=== PATIENT | male | born 1935 | race Two or more races ===

== ENCOUNTER → 2019-10-26 | Outpatient (REF) | payer MEDICARE, OTHER | LOC: M LAB LCGH 11:15 | PROVIDERS: ATTEND Internal Medicine | DX: R04.2 Hemoptysis (principal) ==

== ENCOUNTER 2020-01-28 12:13 | Inpatient (IN) | payer MEDICARE, OTHER ==
[2020-01-28] VITALS (25 sets, daily range): BP systolic 83–131; BP diastolic 49–77
[~2020-01-28] VITALS: Ht 177.8 cm; Wt 102.1 kg
[2020-01-28] MEDS: PANTOPRAZOLE 40MG INJ (PROTONIX) (C9113) IV SCH (09:00)
[2020-01-28] MEDS ORDERED: NOREPINEPHRINE 4 MG/4 ML AMP As Ordered ONE (14:10)
[2020-01-28] MEDS ORDERED: PROPOFOL 1,000 MG/100 ML VIAL As Ordered ONE ×2 (14:13→19:45)
[2020-01-28] MEDS ORDERED: TORS20TA2 PO (14:57)
[2020-01-28] MEDS ORDERED: CEPH500C PO (14:57)
[2020-01-28] MEDS ORDERED: GLIM2TAB29 PO (14:57)
[2020-01-28] MEDS ORDERED: INDO50CA91 PO (14:57)
[2020-01-28] MEDS ORDERED: METO100T5 PO (14:57)
[2020-01-28] MEDS ORDERED: WARF-20 PO (14:57)
[2020-01-28] MEDS ORDERED: PRAV40TA2 PO (14:57)
[2020-01-28] MEDS ORDERED: COLC1TAB13 PO (14:57)
[2020-01-28] MEDS ORDERED: POTA20TA6 PO (14:57)
[2020-01-28] MEDS ORDERED: LISI10TA4 PO (14:57)
[2020-01-28] MEDS ORDERED: NOREPINEPHRINE BITARTRATE 8 MG in D5W 492 ML IV SCH (15:00)
[2020-01-28] MEDS ORDERED: [UNRECOGNIZED DRUG - CODE] IV (15:06)
[2020-01-28] MEDS ORDERED: [UNRECOGNIZED DRUG - CODE] IV (15:06)
[2020-01-28] MEDS ORDERED: PHYT10AM SC (15:06)
[2020-01-28] MEDS ORDERED: CEFT1INJ4 IV (15:06)
[2020-01-28 15:18] LABS: PROTHROMBIN TIME 59.6 SECONDS (11.8-14.0)
--- NOTE | 2020-01-28 15:19 | REP ---
Portable chest x-ray: Single view. History: Intubated central line. No comparison chest x-ray. Findings: A multi lead pacemaker is seen in the right heart via the left side. The patient is rotated to the left. Endotracheal tube is seen in good position at the level of proximal clavicles. A nasogastric tube is inserted and appears to have left upper quadrant of the abdomen although there is overlap with monitoring electrodes. The patient is status post what appears to be aortic valve replacement. Median sternotomy wires and mediastinal clips are noted. There is hazy opacity blunting the right lateral pleural angle. The pulmonary arterial tree is somewhat cephalized and congested in the right lung. The left lung is largely opacified with volume loss suggesting atelectasis and/or mucous plugging. Electronically Signed by Moody Price MD 01/28/2020 03:11 P
[2020-01-28 15:22] LABS: INR 6.77
[2020-01-28 15:29] LABS: ALBUMIN 2.6 GM/DL (3.2-5.2); BILIRUBIN,TOTAL 0.3 MG/DL (0.2-1.0); CALCIUM LEVEL 7.5 MG/DL (8.8-10.2); CK-MB VALUE MASS 6.1 NG/ML (<3.6); CREATININE FOR GFR 3.05 MG/DL (0.70-1.30); GLOMERULAR FILTRATION RATE 20.9 (>35); MB/CK RELATIVE INDEX 6.35 (< OR =4); PHOSPHORUS LEVEL 5.2 MG/DL (2.5-4.9); POTASSIUM SERUM 5.5 MEQ/L (3.5-5.1); TOTAL PROTEIN 6.2 GM/DL (6.4-8.2); TROPONIN I 0.07 NG/ML (< 0.10)
[2020-01-28] MEDS ORDERED: VANCOMYCIN HCL 1,000 MG, VIAL MATE ADAPTER 1 EACH in D5W 250 ML IV ONE (16:00)
[2020-01-28 16:13] LABS: BASO # 0.1 10^3/uL (0.0-0.2); BASO % 0.5 % (0.0-1.0); EOS # 0.1 10^3/uL (0.0-0.5); EOS % 1.2 % (0.0-3.0); HEMATOCRIT 34.3 % (42.0-52.0); HEMOGLOBIN 10.6 g/dl (13.5-17.5); LYMPH # 0.6 10^3/uL (1.5-5.0); LYMPH % 5.7 % (24.0-44.0); MEAN CORPUSCULAR HEMOGLOBIN 30.4 pg (27.0-33.0); MEAN CORPUSCULAR HGB CONC 30.9 g/dl (32.0-36.5); MEAN CORPUSCULAR VOLUME 98.3 fl (80.0-96.0); MONO % 10.5 % (0.0-5.0); PLATELET COUNT, AUTOMATED 304 10^3/uL (150-450); RED BLOOD COUNT 3.49 10^6/uL (4.30-6.10); WHITE BLOOD COUNT 9.9 10^3/uL (4.0-10.0)
[2020-01-28 16:15] LABS: ABG BASE EXCESS -12.8 (-2.0-2.0); ABG HCO3 12.6 MEQ/L (22.0-26.0); ABG O2 SATURATION 99.5 % (95.0-99.0); ABG PARTIAL PRESSURE CO2 27.4 mmHg (35.0-45.0); ABG PARTIAL PRESSURE O2 155.7 mmHg (75.0-100.0); ABG STANDARD HCO3 14.3 MEQ/L (22.0-26.0); ABG TOTAL CO2 13.5 MEQ/L (23.0-31.0); ABG pH (ARTERIAL) 7.281 UNITS (7.350-7.450)
[2020-01-28] MEDS ORDERED: LIDOCAINE 2% 5ML JELLY UROJET TOP ONE (16:15)
[2020-01-28 16:36] LABS: ABG BASE EXCESS -10.9 (-2.0-2.0); ABG HCO3 14.7 MEQ/L (22.0-26.0); ABG O2 SATURATION 98.8 % (95.0-99.0); ABG PARTIAL PRESSURE CO2 31.8 mmHg (35.0-45.0); ABG PARTIAL PRESSURE O2 135.6 mmHg (75.0-100.0); ABG STANDARD HCO3 15.9 MEQ/L (22.0-26.0); ABG TOTAL CO2 15.7 MEQ/L (23.0-31.0); ABG pH (ARTERIAL) 7.283 UNITS (7.350-7.450)
[2020-01-28] MEDS: AZITHROMYCIN INJ 500 MG, VIAL MATE ADAPTER 1 EACH in D5W 250 ML IV SCH (17:10)
--- NOTE | 2020-01-28 17:14 | SMCUROLCON ---
Urology Consultation General Date of Consultation 01/28/20 Reason For Consultation This patient is seen for Acute On Chronic Renal Failure,Septic Shock. History of Present Illness This is an 84 y/o M w/ a PMH significant for A fib, CKD, HTN, DM2, and HL, transferred in from an OSH for likely septic shock. Per report the multiple attempts had been made to place a catheter at the OSH prior to him being [place] sferred. Attempts were made her as well w/o success. The patient has not voided. There is no history of previous urologic procedures per report. The patient is intubated and cannot provide any history. Past Medical History Medical History see HPI Surgical Hstory CABG cataract surgery cholecystectomy Medications Current Medications Current Medications Medications (Trade) Dose Ordered Sig/Noel Route PRN Reason Start Time Stop Time Status Last Admin Dose Admin Azithromycin 500 mg/IV Miscellaneous Supplies 1 each/ Dextrose 255 ml @ 255 mls/hr Q24H IV 01/28/20 16:30 Ceftriaxone Sodium 1 gm/ Dextrose 50 ml @ 100 mls/hr Q24H IV 01/28/20 17:00 Chlorhexidine Gluconate (Peridex Oral Rinse) SWAB/BRUSH ORAL CAVITY BID MT 01/28/20 21:00 Home Med (Med Rec Complete!) ASDIRECTED XX 01/28/20 15:15 01/28/20 15:38 DC Norepinephrine Bitartrate 8 mg/ Dextrose 500 ml @ 37.5 mls/hr [id number] IV 01/28/20 15:00 01/29/20 02:59 Norepinephrine Bitartrate 8 mg/ Dextrose 500 ml @ 37.5 mls/hr [id number] IV 01/29/20 03:00 Pantoprazole Sodium (Protonix) 40 mg DAILY IV 01/28/20 09:00 Vancomycin HCl 1000 mg/IV Miscellaneous Supplies 1 each/ Dextrose 270 ml @ 270 mls/hr Q1H IV 01/28/20 18:00 01/28/20 19:59 Allergies Allergies: Coded Allergies: No Known Allergies (Unverified , 01/28/20) Review of Systems General: Reports: ROS Unobtainable Physical Examination General Exam: No Acute Distress Abdomen Exam: Soft Male Exam uncircumcised phallus w/ tight phimotic ring - foreskin cannot be retracted Vital Signs/I&O Vital Signs Date Time Temp Pulse Resp B/P (MAP) Pulse Ox O2 Delivery O2 Flow Rate FiO2 01/28/20 15:15 78 108/62 (80) 98 111/57 01/28/20 14:30 98.1 Ventilator 40 01/28/20 14:25 25 Laboratory Data 24H Labs Laboratory Tests 2 01/28/20 14:18: Anion Gap 8, Glomerular Filtration Rate 20.9L, Calcium Level 7.5L, Phosphorus Level 5.2H, Magnesium Level 2.0, Total Bilirubin 0.3, Aspartate Amino Transf (AST/SGOT) 46H, Alanine Aminotransferase (ALT/SGPT) 58, Alkaline Phosphatase 121H, Lactate Dehydrogenase 208, Total Creatine Kinase 96, Creatine Kinase MB 6.1H, Creatine Kinase MB Relative Index 6.35H, Troponin I 0.07, Total Protein 6.2L, Albumin 2.6L, Albumin/Globulin Ratio 0.72L, Triglycerides Level 98, Cholesterol Level 78 01/28/20 14:36: Prothrombin Time 59.6H, Prothromb Time International Ratio 6.77*H, Lactic Acid Level 1.1 01/28/20 15:47: Immature Granulocyte % (Auto) 1.1, Neutrophils (%) (Auto) 81.0H, Lymphocytes (%) (Auto) 5.7L, Monocytes (%) (Auto) 10.5H, Eosinophils (%) (Auto) 1.2, Basophils (%) (Auto) 0.5, Neutrophils # (Auto) 8.0, Lymphocytes # (Auto) 0.6L, Monocytes # (Auto) 1.0H, Eosinophils # (Auto) 0.1, Basophils # (Auto) 0.1, Nucleated Red Blood Cells % (auto) 0.3H 01/28/20 16:13: Blood Gas Bicarbonate Standard 15.9L, Arterial Blood pH 7.283L, Arterial Blood Partial Pressure CO2 31.8L, Arterial Blood Partial Pressure O2 135.6H, Arterial Blood Total CO2 15.7L, Arterial Blood HCO3 14.7L, Arterial Blood Base Excess - 10.9L, Arterial Blood Oxygen Saturation 98.8, Arterial Blood Gas Puncture Site UNKNOWN CBC/BMP Laboratory Tests 01/28/20 14:18 01/28/20 15:47 Microbiology Microbiology 01/28/20 Blood Culture, Received Pending 01/28/20 Blood Culture, Received Pending Assessment This is an 84 y/o M w/ likely septic shock and difficult catheter placement. He was bladder scanned for over 600cc. After the patient was prepped w/ betadine, urojet was injected into the the tight phimotic ring. A Kaylynn clamp was then used to gently spread the phimotic ring just enough to allow a catheter to be placed. The ring was still to tight to retract the foreskin. A 16Fr catheter was then inserted and advanced into the bladder w/o resistance. Cloudy yellow urine then drained. The balloon was filled w/ 10cc of sterile water and the catheter was connected to gravity drainage. Plan - keep catheter to gravity drainage - should the patient improve he should be discharged with the catheter in place - he should then follow up in the urology clinic as he might benefit from a circumcision on an elective basis TAMIKO LEVY MD Jan 28, 2020 17:14
[2020-01-28] MEDS: cefTRIAXone SOD 1 GM in D5W MINI-BAG PLUS 50 ML IV SCH (18:16)
[2020-01-28 18:22] LABS: APPEARANCE, URINE CLOUDY (CLEAR); BACTERIA, URINE AUTO 1+ (NEGATIVE); BILIRUBIN, URINE AUTO NEGATIVE (NEGATIVE); BLOOD, URINE BLOOD 2+ (NEGATIVE); COLOR, URINE YELLOW (YELLOW); GLUCOSE, URINE (UA) AUTO NEGATIVE (NEGATIVE); KETONE, URINE AUTO TRACE mg/dL (NEGATIVE); LEUKOCYTE ESTERASE, URINE AUTO NEGATIVE (NEGATIVE); NITRITE, URINE AUTO NEGATIVE (NEGATIVE); PROTEIN, URINE AUTO NEGATIVE (NEGATIVE); RBC, URINE AUTO 15 /HPF (0-3); SPECIFIC GRAVITY URINE AUTO 1.014 (1.002-1.035); SQUAMOUS EPITHELIAL CELL UR AU 0 /HPF (0-6); UROBILINOGEN, URINE AUTO 0.2 mg/dL (0.0-2.0); WBC, URINE AUTO 6 /HPF (0-3)
--- NOTE | 2020-01-28 19:02 | ECHO ---
DATE OF PROCEDURE: 01/28/2020 REFERRING PHYSICIAN: Dr. Te Aviles INDICATION: Heart failure, unspecified. HEIGHT: 70 inches WEIGHT: 105 kg 2D MEASUREMENTS: Left atrium: 4.4 cm Ventricular septum: 1.26 cm Posterior wall: 1.18 cm Left ventricle diastole: 5.6 cm Inferior vena cava: 2.3 cm with marked reduction of respiratory variation. DOPPLER MEASUREMENTS: Mild aortic regurgitation. No aortic stenosis. Aortic valve velocity: 183 cm/s LVOT velocity: 62.4 cm/s LVOT VTI: 12.1 cm Mild mitral regurgitation. Moderate tricuspid regurgitation. Estimated right ventricle systolic pressure: At least 77 mmHg assuming a right pressure of at least 20 mmHg. MITRAL ANNULAR TISSUE DOPPLER: E prime septal: 5.0 cm/s E prime lateral: 6.5 cm/s DESCRIPTION: Rhythm was sinus. Suspect biventricular pacing. No pericardial effusion. This was a moderately technically difficult echocardiogram. No pericardial effusion. CONCLUSIONS: 1. Akinesis of the basal and mid inferior and inferolateral left ventricular (LV) segments and akinesis of the apical cap segment. Paradoxical septal motion. Normal wall motion and wall thickening elsewhere. Moderate reduction overall LV systolic function. Left ventricular ejection fraction (LVEF) 40% by visual estimate. Mild eccentric left ventricular hypertrophy. Mild left ventricle dilatation. 2. Moderate aortic valve sclerosis of a 3-cusp aortic valve. No aortic stenosis. Mild aortic regurgitation. 3. Mild mitral annular calcification. Mild mitral regurgitation. 4. Mild left atrial dilatation. 5. Suggestive of severe elevation of estimated right ventricle systolic pressure (at least 77 mmHg). Inferior vena cava plethora. Suggestive of elevated central venous pressure of at least 20 mmHg. 6. Presence of endocardial cardiac rhythm management leads including a right ventricle implantable cardioverter defibrillator (ICD), a coronary sinus LV lead, and a right ventricle pacing lead.
--- NOTE | 2020-01-28 20:54 | PHACANCOPD ---
PHARMACY VANCOMYCIN DOSING Pt Demographics Demographics Patient Age:84 , Weight: , Gender: male Adjusted Body Weight Date: 01/28/20, Adjusted Body Weight: Kg Events Past 24 Hours Events Past 24 Hours: NO: Dialysis, Diuretic Therapy, Change in CrCl, Fever, Elevation in WBC, Pending Diagnostics, Pending Procedures, Other Vancomycin Vancomycin indication: Pneumonia Vancomycin Target Ranges: 15-20 mcg/ml Vancomycin Load Y/N: Yes Load Dose Date Time Vancomycin Load Dose: 2000mg Date: 01/28/20 Time:1800 Vancomycin Dose Date: 01/28/20. Current Vancomycin Dose: [ 1500mg q24h @18 ] Intermittent Dosing?: No Labs Labs Vital Signs Label Value Date Time Patient Temperature 99.0 degrees F 01/28/202031 Temperature Source Temporal 01/28/202031 Patient Temperature 98.0 degrees F 01/28/201812 Temperature Source Tympanic 01/28/201812 Respiratory Rate 27 bpm 01/28/201812 Pulse 77 01/28/201812 Pulse 80 01/28/202031 Blood Pressure Assessment 83/51 01/28/201812 Blood Pressure Assessment 104/62 01/28/202016 Blood Pressure Assessment 115/77 01/28/202031 Item Value Date Time White Blood Count 9.9 10^3/uL 01/28/20 1547 Creatinine 3.05 MG/DL H 01/28/20 1418 Glomerular Filtration Rate 20.9 L 01/28/20 1418 Micro Microbiology 01/28/20 Blood Culture, Received Pending 01/28/20 Blood Culture, Received Pending Creatinine Clearance Date:01/28/20. Creatinine Clearance: [ 18.6 mL/min ]. Assessment and Plan Maintaining Current Dose?: Yes Reason for dose change: No Dose Change Pharmacist Note Pharmacist Note Date: 01/28/20. Pharmacist note: Patient is an 84-year-old male who was transferred to [facility], with the admitting diagnoses of acute on chronic renal failure and septic shock. He has no previous vancomycin therapy at [facility]. He was placed on broad-spectrum antibiotic therapy for possible pneumonia and septic shock consisting of azithromycin, ceftriaxone, and vancomycin. A 2 gram loading dose of vancomycin was scheduled for 1800, with a subsequent maintenance dose of 1500mg every 24 hours. A vancomycin trough level was scheduled for 01/30/20 @1700, with a goal trough level of 15-20mcg/dL. A MRSA PCR and basic metabolic profile were ordered. We will continue to monitor and make adjustments as needed. [facility] Jan 28, 2020 20:54
[2020-01-28] MEDS ORDERED: SODIUM BICARBONATE 150 MEQ in D5W 1,000 ML IV SCH (21:00)
[2020-01-28] MEDS ORDERED: VASOPRESSIN INJ 20 UNITS in NS 499 ML IV SCH (21:00)
[2020-01-28] MEDS: CHLORHEXIDINE GLUCONATE 0.12 % 15ML UDC (PERIDEX ORAL RINSE) MT SCH (21:03)
[2020-01-28] MEDS: VANCOMYCIN HCL 1,000 MG, VIAL MATE ADAPTER 1 EACH in D5W 250 ML IV SCH ×2 (21:06→21:13)
--- NOTE | 2020-01-28 21:24 | HPE ---
DATE OF ADMISSION: 01/28/2020 HISTORY OF THE PRESENT ILLNESS: History is obtained from the chart and from collateral information as the patient is intubated and unable to provide history. Mr. Nieto is an 84-year-old male with a past medical history of coronary artery disease with myocardial infarction (GA) and coronary artery bypass graft (CABG), hypertension, hyperlipidemia, diabetes, atrial fibrillation - on anticoagulation, history of congestive heart failure (CHF) with automatic implantable cardioverter defibrillator (AICD) and pacemaker, sleep apnea, aortic valve replacement, history of gout who had presented to an outside hospital emergency department (ED) with complaints of insomnia and generalized weakness. The patient had a procedure done by podiatry last Tuesday where he had a gouty tophi removed from his right big toe. Postprocedure he was started on cephalexin, colchicine and indomethacin, which he has been taking since his presentation to [facility]. The patient noted difficulty sleeping and some generalized weakness, and his had felt that his speech was not as clear as it was usually, but he otherwise did not have any new complaints. On further questioning, the patient's family reports he does have a history of pneumonia when he was hospitalized previously in September with pneumonia with hemoptysis. He was treated with antibiotics and his hemoptysis resolved but that he was told that he has issues with mucus or fluid in his lungs, but given his chronic medical conditions, he could not have any procedures. His family states that he has had a chronic cough since then, occasionally productive of mucus, but they have not noticed any worsening cough or any fevers or chills. He has not complained of any chest pain recently as well and has not had any nausea or vomiting. No reported diarrhea. The patient is incontinent at baseline, as per the family but denies any previous history of any other urologic procedures. The patient was initially seen at [facility]. He was found to have acute on chronic renal failure with hyperkalemia as well as a significant metabolic acidosis. The patient was found to have a pH of 7.13, a pCO2 of 41.6, and a pO2 of 88.8. His chemistry was also notable for hyperkalemia of 5.8 in addition to his acute on chronic renal failure with a BUN of 111 and a creatinine of 3.6. The patient had a normal lactate initially and mild leukocytosis with a WBC of 10.7. He was also noted to have a supratherapeutic INR with an INR greater than 9.8, which was the maximum that their lab was able to report. The patient was treated with insulin and glucose for treatment of his hyperkalemia. He was also given Keflex for antibiotics, and the patient was also given vitamin K 10 mg and 1 unit of fresh frozen plasma for his supratherapeutic INR. The patient was then noted to have worsening hypotension with systolic blood pressures in the 70s and 80s. He was given almost 2 liters of normal saline bolus and had only slight improvement in his blood pressure. The patient was then started on Levophed peripherally with improvement in his blood pressure. The patient was then intubated. He was given rapid sequence medications for intubation as well as 3 ampules of bicarb prior to intubation. Post intubation the patient was started on a Versed drip for sedation and continued with the Levophed on transport. At the previous hospital, there were attempts made to insert a Naranjo, which were unsuccessful. He was not reported to have any urination at the other hospital. PAST MEDICAL AND SURGICAL HISTORY: Gout. Coronary artery disease with GA, status post CABG. CHF with biventricular (bi-V) implantable cardioverter defibrillator (ICD). Atrial fibrillation - on anticoagulation. Chronic kidney disease. Diabetes. Hypertension. Hyperlipidemia. Mitral valve regurgitation. Hiatal hernia. Cholecystectomy. History of left hip replacement. History of left total knee replacement. Aortic valve replacement, bovine valve. Sleep apnea. History of varicella in the past. SOCIAL HISTORY: Former smoker with 24 pack years. Denies any alcohol use. FAMILY HISTORY: Reported of dementia and a heart valve problem. HOME MEDICATIONS: - lisinopril - glimepiride - metoprolol - pravastatin - torsemide 20 mg twice a day - Coumadin 6 mg by mouth daily and additional 4 mg by mouth as directed - potassium chloride - cephalexin 500 mg by mouth three times a day - colchicine 0.6 mg by mouth twice a day - indomethacin 50 mg by mouth three times a day ALLERGIES: No known drug allergies. REVIEW OF SYSTEMS: Unable to be obtained as the patient is intubated and sedated. PHYSICAL EXAM: Temperature 98.1, pulse of 91, respirations 25, blood pressure is 94/50, oxygen saturation (O2 sat) is 100% on the vent at 40% FiO2. General: Patient is intubated and sedated. He is responsive to painful stimuli and is moving his lower extremities spontaneously. He is responsive to painful stimuli but is not following any commands. HEENT: Normocephalic, atraumatic. Pupils are small but reactive to light bilaterally. Mucous membranes are moist. He does have a lesion on his lip with report of possible biting. Neck is supple. Trachea is midline. There is no palpable cervical adenopathy. Jugular venous distention (JVD) is elevated. Cardiac: Irregularly irregular. Normal S1, S2 with a faint murmur. Pulmonary: There are severely diminished breath sounds on the left side with some coarse ventilator breath sounds on the right with diminished breath sounds at the right base. Abdomen is obese, soft, nontender, nondistended. No guarding noted. Extremities: There is no significant lower extremity edema bilaterally. LABORATORY: WBC is 9.9, hemoglobin is 10.6, platelets are 304. Chemistry: Sodium is 142, potassium is 5.5, chloride is 115, bicarbonate is 19, BUN is 100, creatinine is 3.05, glucose is 100, calcium is 7.5, phosphorus is 5.2, AST 46, ALT 58, alkaline phosphatase is 121, troponin times one is negative. Albumin is 2.6, lactic acid is 1.1, INR is 6.77. UA showed trace ketones, positive blood, negative nitrites and with some bacteria with negative leukocyte esterase. ABG: pH 7.281, pCO2 of 27.4, pO2 of 155.7. Chest x-ray on arrival showed endotracheal (ET) tube in good position. An orogastric (OG) tube was coursing below the diaphragm it appeared, although there is overlap with electrodes where the tip is. There are median sternotomy wires and clips and what appears to be an aortic valve replacement. There is a multilead pacemaker seen in the right heart via the left side. There is a small right pleural effusion as well as some pulmonary vascular congestion on the right. The left lung shows opacification with some volume loss with mediastinal shift to the left slightly, suggesting atelectasis as well as mucus plugging. The left main bronchus appears to have a sharp cut off suggesting a mucus plug. Outside CT abdomen and pelvis reportedly showed moderate left-sided pleural effusion with atelectasis and consolidation in the left lung. There is a small right pleural effusion and right basilar atelectasis. There is much severe cardiomegaly with trace pericardial effusion. There is a small upper abdominal ascites and moderate diffuse fatty infiltration of the liver. There are multiple low-density cystic lesions in the right kidney. There is a lobulated appearance of the left kidney and no hydronephrosis noted bilaterally. There is some moderate distension of the urinary bladder and some moderate prostatomegaly with dystrophic prostate calcifications. There is some diverticular disease but no evidence of bowel obstruction or inflammation and no free air. ASSESSMENT AND PLAN: Mr. Nieto is an 84-year-old male with a past medical history of coronary artery disease, status post CABG, CHF, status post of biventricular AICD, atrial fibrillation - on anticoagulation, history of aortic valve replacement, diabetes, hypertension, hyperlipidemia, chronic kidney disease and gout, obstructive sleep apnea (NINA), who presented at an outside hospital initially with complaints of insomnia and generalized weakness. The patient had a recent podiatry procedure on his right big toe last week and was started on Keflex as well as indomethacin and colchicine for his gouty toe. In the outside hospital, he was noted to have acute on chronic renal failure with a significant metabolic acidosis with additional respiratory acidosis. He was also noted to be hyperkalemic, as well as having supratherapeutic INR. The patient did also become more hypotensive despite IV fluid boluses, and he was lethargic. The patient was started on peripheral Levophed, and he was intubated and placed on mechanical ventilation and transferred to our intensive care unit (ICU) for further evaluation. NEUROLOGIC: The patient is intubated and sedated currently. He has a history of altered mental status, likely secondary to metabolic encephalopathy with his uremia. He did have a supratherapeutic INR initially and did not have any imaging of his brain done at the outside hospital. - Will get a head CT to evaluate for any acute intracranial pathology. - Will continue with propofol for sedation with Versed as needed for agitation to titrate for a Gregory of 2-3. CARDIOVASCULAR: The patient has extensive cardiac history including CAD, CHF, status post biventricular AICD, atrial fibrillation, was on anticoagulation with Coumadin and a previous history of a bovine aortic valve replacement. He presented with shock, possibly secondary to sepsis given his x-ray findings with left lung atelectasis and mucus plugging. He also had a recent the procedure on his foot and may have a potential source of infection there, although he was on outpatient antibiotics with Keflex. Given his cardiac history, cardiogenic shock is also possible. - The patient had a right internal jugular (IJ) triple lumen placed here for administration of vasopressors and he was started on Levophed. Vasopressin was added as well to maintain a mean arterial pressure (MAP) above 65. - Will continue to trend cardiac enzymes. His initial cardiac enzyme was negative and his initial EKG did not show any evidence of acute ST elevations or depressions. - Will get an echocardiogram for evaluation of his shock. At bedside, he appeared to have evidence of RV dilation with a dilated inferior vena cava (IVC) suggestive of increased central venous pressures. Given his hypotension and renal failure, fluid removal may be difficult, but patient may respond better given evidence of pulmonary hypertension and right heart failure with some reduction in his preload. Will followup final results of echo. - Will hold his Coumadin and will give an additional 2 units of FFP to correct his supratherapeutic INR. He was already given vitamin K of 10 mg. Will hold off on aspirin for now as he does have evidence of uremia and likely has some platelet dysfunction with it - Will add a BNP. PULMONARY: Patient with severe metabolic acidosis with inappropriate respiratory acidosis. He was also in shock and so was intubated and started on mechanical ventilation. His x-ray here shows evidence of pulmonary vascular congestion with bilateral pleural effusions, left likely greater than the right as well as with some left lung atelectasis and mucus plugging. The patient has no fever but did have mild leukocytosis initially at the outside hospital. Patient possibly with pneumonia given his imaging findings. - Will start antibiotics for possible pneumonia with ceftriaxone and azithromycin and will also start vancomycin pending results of a methicillin-resistant Staphylococcus aureus (MRSA) screen. - Will check a sputum culture and will also followup results of blood cultures. - will also check wound culture from his right big toe. - I will continue the patient on mechanical ventilation with volume control with settings of 420/27/40 and 5. The patient's respiratory rate was increased as his ABG here continued to show evidence of an acidosis, likely primarily metabolic, with a component of inappropriate respiratory compensation. - Will continue daily ABGs and chest x-rays while intubated and continue with vent bundle care with head of bed elevation and chlorhexidine mouthwash. - Given his left lung atelectasis, will place the patient left side up and will place a directional suction catheter and attempt to suction mucus from his left lung via the ET tube. If the patient continues to have atelectasis in the left lung, then he may require bedside bronchoscopy for mucus clearance. RENAL: Patient with acute on chronic renal failure with hyperkalemia and metabolic acidosis. He does not have a significant anion gap, and his lactic acid is normal, so he may have a component of non-anion gap acidosis. - Will consult renal and appreciate their recommendations. Will discuss with them about gentle bicarbonate infusion as he does have significant volume overload noted on his bedside echo and with significantly elevated central venous pressure (CVP). Will continue to monitor his electrolytes. Will continue to monitor electrolytes and correct as needed. - The patient had evidence of phimosis on examination, which likely contributed to difficulty with Naranjo catheter placement. He did have 650 mL of urine on his bladder scan and is likely having urinary retention which may be contributing to his renal failure as well. The patient did also get indomethacin and colchicine, which may have also contributed to potential acute tubular necrosis (ATN). - Appreciate urology consult and recommendations. He did have a Naranjo catheter placed by urology which will remain in place unless directed by urology. - Will continue to monitor his urine output via the Naranjo. The patient does not have any urgent indication for dialysis at this time, but will continue to monitor his renal function and acidosis. - Patient has a history of diabetes. His glucose has not been elevated. Will order fingerstick glucose checks. GASTROINTESTINAL (GI): Will place an OG tube and keep patient nothing by mouth (n.p.o.) with low wall intermittent suction. Would likely be able to start him on tube feeds tomorrow depending on his vasopressor requirements. - Patient's outside CT abdomen and pelvis had shown evidence of fatty liver and small amount of ascites. Will continue to monitor his liver function test. - Continue GI prophylaxis while intubated. Heparin for deep vein thrombosis (DVT) prophylaxis. CODE STATUS: The patient had a previous Medical Orders for Life-Sustaining Treatment (MOLST) which stated he was do not resuscitate/do not intubate (DNR/DNI); however, after discussion with the patient and his family, particularly with his healthcare proxy who he does have a documented healthcare proxy form, the decision was made for a trial intubation and to continue him as a DNR. TOTAL CRITICAL CARE TIME SPENT: Not including any procedures, approximately 1 hour and 45 minutes [email or web address]
--- NOTE | 2020-01-28 21:31 | RO ---
DATE OF PROCEDURE: 01/28/2020 INDICATION: Vasopressor administration. PREPROCEDURE DIAGNOSIS: Shock. POSTPROCEDURE DIAGNOSIS: Shock. PROCEDURE: Central line insertion. SURGEON: Gayle Wlesh MD CONSENT: Consent was implied due to the emergent nature of the procedure. DESCRIPTION OF PROCEDURE: A central line insertion practice form was completed by independent observer. A time-out was performed. Full sterile technique was maintained throughout procedure, including surgical cap, mask with protective eyewear, full gown and sterile gloves. The patient was placed in Trendelenburg position, and the right neck region was prepped using chlorhexidine scrub and draped in sterile fashion using a fenestrated drape and a sterile probe cover employed. The right internal jugular vein was identified using ultrasound. Anesthesia was achieved over the vein using 1% lidocaine. Using real-time out of plane guidance, introducer needle was inserted into the internal jugular vein under direct ultrasound visualization. Venous blood was drawn. The syringe was removed and a guidewire was advanced into the introducer needle. The introducer needle was removed over the guidewire. A small incision was made at the skin surface with a scalpel and the dilator was exchanged over the guidewire. After appropriate dilation was obtained, the dilator was exchanged over the wire for a triple lumen central venous catheter. The wire was removed and the catheter was sutured in place at 18 cm. A sterile chlorhexidine impregnated dressing was placed over the catheter insertion site. The patient tolerated the procedure without hemodynamic compromise. At the time of procedure completion, all ports aspirated and flushed properly. Postprocedure chest x-ray showed the triple lumen in position with no pneumothorax. Estimated blood loss was less than 2 mL. MTDD
--- NOTE | 2020-01-28 21:42 | ECGEPIP ---
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
--- NOTE | 2020-01-28 21:45 | RO ---
DATE OF PROCEDURE: 01/28/2020 INDICATION: Hemodynamic monitoring. PREPROCEDURE DIAGNOSIS: Shock. POSTPROCEDURE DIAGNOSIS: Shock. PROCEDURE: Femoral arterial line insertion. SURGEON: Gayle Welsh MD MATERIAL HANDLING SUPERVISOR: ANESTHESIA: CONSENT: Consent was implied due to the emergent nature of the procedure. DESCRIPTION OF PROCEDURE: Time-out was performed and full sterile technique was maintained throughout the procedure including surgical cap, mask, protective eyewear, sterile gown and sterile gloves. The left inguinal region was prepped using chlorhexidine scrub and draped in a sterile fashion using a fenestrated drape. A sterile probe cover was employed. The left femoral artery was identified using ultrasound and anesthesia was achieved using 1% lidocaine. Using real-time out of plane guidance, the introducer needle was inserted into the left femoral artery under direct ultrasound visualization. Arterial blood was withdrawn. The syringe was removed and a guidewire was advanced through the needle into the femoral artery. The needle was exchanged over the wire. An arterial catheter was then exchanged over the wire and the wire was removed and the catheter was secured to the skin using sutures. The patient tolerated the procedure without any hemodynamic compromise. At time of procedure completion, the catheter was connected to the record filing clerk and calibrated. Appropriate waveform and blood pressure tracing was observed. Estimated blood loss was less than 2 mL.
--- NOTE | 2020-01-28 22:10 | CR ---
DATE OF CONSULTATION: 01/28/2020 REQUESTING PHYSICIAN: Dr. Gayle Welsh CONSULTING PHYSICIAN: Dr. Reva Yu REASON FOR CONSULTATION: Management of acute renal failure and metabolic acidosis. NOTE: History was obtained from the patient's chart and from medical team. The patient is unable to provide any reliable history because he is intubated. HISTORY OF PRESENT ILLNESS: Alex Nieto is an 84-year-old male with past medical history of baseline chronic kidney disease, hypertension, diabetes mellitus type 2, hyperlipidemia. The patient was transferred to [facility] for higher level of care. He initially presented to an outside emergency room with progressive shortness of breath, hypotension. The patient was intubated in the emergency room before being transferred to our center. He was started on a Levophed infusion over there. On arrival and initial labs evaluation, the patient was found to be in acute renal failure with a BUN of 100, creatinine of 3.05. He has a normal anion gap metabolic acidosis with a pH of 7.28. On arrival, he was already given sodium bicarbonate 2 ampules over there. The patient is hyperkalemic with a potassium of 5.5. He has vent dependent respiratory failure and left lung collapse. Nephrology service was called for further help in the management of this patient with acute renal failure. Furthermore, the patient was found to be in urinary retention when he arrived in the intensive care unit (ICU). Urology help was sought because of the patient's phimosis and inability to pass the Naranjo catheter, and urology placed the Naranjo catheter and more than 600 mL of urine came out. PAST MEDICAL HISTORY: Past medical see of chronic kidney disease stage III, baseline creatinine is not known. History of atrial fibrillation, hypertension, diabetes mellitus type 2, hyperlipidemia, coronary artery disease. PAST SURGICAL HISTORY: Status post coronary artery bypass grafting, status post cholecystectomy, cataract surgery, and history of pacemaker placement. ALLERGIES: No known drug allergies. FAMILY HISTORY: Unknown family history. SOCIAL HISTORY: I was unable to get any social history from the patient. REVIEW OF SYSTEMS: The patient is unable to provide any review of systems because he is intubated. PHYSICAL EXAMINATION: General: The patient is intubated, sedated, laying in the bed. Vital signs: Temperature is 98.6 degrees Fahrenheit, blood pressure 104/62, pulse is 85, respiratory rate of 27, saturating 96% on the vent with 35% FiO2. Head and neck exam: Patient has an endotracheal tube and an orogastric tube. Neck is supple, and he has a right IJ triple lumen catheter. Cardiovascular: S1, S2, regular rate. Trace edema of the bilateral lower extremities. Respiratory: There are no breath sounds on the left side. Breath sounds are audible on the right side only. Abdomen: Soft, positive bowel sounds, obese, no organomegaly was noted. Genitourinary: Patient has an indwelling Naranjo catheter. The a urinary bag has been emptied now. There is a very small amount of urine in the Naranjo drainage tube. Musculoskeletal: No clubbing or cyanosis. Trace edema of the bilateral lower extremities. 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 He moves on painful stimuli. LAB REVIEW: CBC showed a WBC of 9.9, hemoglobin is 10.6, platelets are 304, INR showed it was 6.7. Urinalysis showed it was cloudy, no protein, 2+ blood. ABG showed pH of 7.28, pCO2 of 31, pO2 of 135, bicarbonate is 14.7, oxygen saturation (O2 sat) is 98.8%. BMP showed sodium 142, potassium 5.5, chloride 115, bicarbonate 19, BUN 100, creatinine is 3, lactic acid 1.1, calcium is 7.5, phosphorus is 5.2, AST 46, ALT 58, troponin 0.07, Pro-BNP is 17,678, albumin is 2.6. Microbiology: Blood cultures and urine cultures are pending. IMAGING STUDIES: A chest x-ray was done which showed median sternotomy wires and mediastinal clips are noted. Hazy opacity blunting the right lateral pleural angle. Pulmonary arterial tree is somewhat cephalized and congested in the right lung. Left lung is opacified with volume loss suggesting atelectasis or mucous plugging. CURRENT INPATIENT MEDICATIONS: The patient is currently on azithromycin 500 mg IV daily, ceftriaxone 1 gram IV daily. He is on Levophed at 7 mcg at this time. I have started the patient on sodium bicarbonate drip 115 mEq at 60 mL an hour, vancomycin 500 mg IV every 24 hours. ECHOCARDIOGRAM: An echocardiogram was done today. It showed left ventricular (LV) ejection fraction was around 40%. There was akinesis of the basal and mid inferior and inferolateral left ventricle and akinesis of the apical cap segment with paradoxical septal wall motion, severe elevation of the estimated right ventricle systolic pressure, which was around 77 mmHg. Inferior vena cava plethora and presence of endocardial leads ASSESSMENT: An 84-year-old male with acute renal failure superimposed on chronic kidney disease along with normal anion gap metabolic acidosis, hyperkalemia, decompensated systolic congestive heart failure and vent dependent respiratory failure. PLAN: 1. Acute renal failure. Multiple etiologies including use of colchicine, indomethacin, and lisinopril at home along with use of diuretics. All of the nephrotoxic medications are on hold. The patient has been started on bicarb containing fluids. He was also in urinary retention when he arrived. Naranjo catheter was replaced by urology. Continue to monitor intake and output. No urgent need of hemodialysis at this time. I will continue to daily monitor the renal function for any need to start the patient on renal replacement therapy. 2. Vent dependent respiratory failure. The patient has complete whiteout of the left lung, most likely it is collapsed secondary to mucous plugging. He is currently empirically getting antibiotics, he is intubated. Pulmonary team is planning to do the bronchoscopy tomorrow morning. 3. Normal anion gap metabolic acidosis. It is secondary to acute renal failure. The patient has been started on D5W with sodium bicarbonate 150 mEq it will run at 60 mL an hour. Weight is being kept low because of history of congestive heart failure as well. 4. Chronic gout secondary to chronic kidney disease. The patient was getting indomethacin and colchicine and these medications have been held because of acute renal failure at this time. 5. Chronic systolic congestive heart failure. The patient's metoprolol, lisinopril and diuretics are on hold because of acute renal failure. 6. Hyperkalemia. It is secondary to use of angiotensin-converting enzyme (CALIXTO) inhibitors and potassium at home. Potassium level is expected to improve with improvement in the renal function. 7. Anemia in chronic kidney disease. Hemoglobin level is 10.6 which is optimal at this time. 8. Supratherapeutic INR. INR is 6.7. The patient was already given fresh frozen plasma and vitamin K. There is no active bleeding at this time. 9. Shock. The patient's cultures are pending. He is empirically being covered with IV antibiotics. He is requiring Levophed at 7 mcg. The rest of the management is as per pulmonary critical care team. Thank you for involving me in the care of this patient. I shall be happy to follow the patient along with you tomorrow morning. Total critical care time spent in the management of this patient today evening in the ICU was 70 minutes; that does not include any procedures.
[2020-01-29] VITALS (26 sets, daily range): BP systolic 82–134; BP diastolic 34–91
[2020-01-29 00:17] LABS: CALCIUM LEVEL 7.6 MG/DL (8.8-10.2); CREATININE FOR GFR 2.87 MG/DL (0.70-1.30); GLOMERULAR FILTRATION RATE 22.4 (>35); POTASSIUM SERUM 4.6 MEQ/L (3.5-5.1)
--- NOTE | 2020-01-29 00:20 | REPVR ---
PROCEDURE INFORMATION: Exam: CT Head Without Contrast Exam date and time: 01/28/2020 2:25 PM Age: 84 years old Clinical indication: Coma or unconsciousness; Additional info: Obtunded on presentation TECHNIQUE: Imaging protocol: Computed tomography of the head without contrast. Radiation optimization: All CT scans at this facility use at least one of these dose optimization techniques: automated exposure control; mA and/or kV adjustment per patient size (includes targeted exams where dose is matched to clinical indication); or iterative reconstruction. COMPARISON: No relevant prior studies available. FINDINGS: Brain: No intracranial mass, mass effect or midline shift. No acute intracranial hemorrhage. No CT evidence of acute cortical infarct. Ventricles: Ventricles, cisterns, and sulci are normal in size for age. Bones/joints: No calvarial fracture or destructive process. Sinuses: Mild ethmoid and sphenoid sinus mucosal thickening is present. Mastoid air cells: Mastoid air cells are normally aerated. Orbits: Imaged orbits are unremarkable. Soft tissues: No focal extracranial soft tissue swelling. IMPRESSION: No acute or concerning focal intracranial abnormality. Electronically signed by: Zachary Manuel On 01/29/2020 00:20:46 AM
[2020-01-29] MEDS ORDERED: PROPOFOL 1,000 MG/100 ML VIAL As Ordered ONE (04:22)
[2020-01-29] MEDS ORDERED: propofoL 1,000 MG in IV 1 EA IV SCH (04:30)
[2020-01-29] MEDS: NOREPINEPHRINE BITARTRATE 8 MG in D5W 492 ML IV SCH ×2 (04:31→11:20)
[2020-01-29 05:01] LABS: BASO % 0.4 % (0.0-1.0); EOS # 0.3 10^3/uL (0.0-0.5); EOS % 3.4 % (0.0-3.0); HEMATOCRIT 31.5 % (42.0-52.0); HEMOGLOBIN 10.3 g/dl (13.5-17.5); LYMPH # 0.7 10^3/uL (1.5-5.0); LYMPH % 8.9 % (24.0-44.0); MEAN CORPUSCULAR HEMOGLOBIN 31.1 pg (27.0-33.0); MEAN CORPUSCULAR HGB CONC 32.7 g/dl (32.0-36.5); MEAN CORPUSCULAR VOLUME 95.2 fl (80.0-96.0); MONO % 13.8 % (0.0-5.0); NEUTROPHILS # 5.3 10^3/uL (1.5-8.5); NEUTROPHILS % 72.8 % (36.0-66.0); PLATELET COUNT, AUTOMATED 222 10^3/uL (150-450); RED BLOOD COUNT 3.31 10^6/uL (4.30-6.10); WHITE BLOOD COUNT 7.3 10^3/uL (4.0-10.0)
[2020-01-29 05:14] LABS: INR 3.43; PROTHROMBIN TIME 34.6 SECONDS (11.8-14.0)
[2020-01-29 05:52] LABS: C REACTIVE PROTEIN QUANTITATIV 2.74 MG/DL (0.00-0.30); CALCIUM LEVEL 7.5 MG/DL (8.8-10.2); CK-MB VALUE MASS 3.9 NG/ML (<3.6); CREATININE FOR GFR 2.49 MG/DL (0.70-1.30); GLOMERULAR FILTRATION RATE 26.4 (>35); MB/CK RELATIVE INDEX 6.09 (< OR =4); POTASSIUM SERUM 4.1 MEQ/L (3.5-5.1); THYROID STIMULATING HORMONE 1.02 uIU/ML (0.358-3.740); TROPONIN I 0.18 NG/ML (< 0.10)
[2020-01-29 06:11] LABS: ABG BASE EXCESS -7.4 (-2.0-2.0); ABG HCO3 17.1 MEQ/L (22.0-26.0); ABG PARTIAL PRESSURE CO2 31.4 mmHg (35.0-45.0); ABG PARTIAL PRESSURE O2 133.8 mmHg (75.0-100.0); ABG STANDARD HCO3 18.4 MEQ/L (22.0-26.0); ABG TOTAL CO2 18.1 MEQ/L (23.0-31.0); ABG pH (ARTERIAL) 7.354 UNITS (7.350-7.450)
--- NOTE | 2020-01-29 08:37 | REP ---
Portable chest x-ray: Single view. History: Intubation. Comparison study January 28, 2020. Findings: Endotracheal tube is seen in good position at the level of the proximal clavicles. An NG tube is noted. This appears to terminate in the distal esophagus. Pacemaker leads are noted in the right heart as before. The patient is status post prior sternotomy and what appears to be aortic valve replacement. Cardiomegaly is again observed. There is increased density left base obscuring the left diaphragm and descending aortic border consistent with consolidation and/or atelectasis in the lower lobe with without left pleural effusion. There is however improved aeration in the left lung compared with yesterday's radiograph. Hazy opacity in the right base suggests a small right effusion. A right internal jugular central venous line is again noted in place. Impression: Improved aeration left lung. NG tube appears to terminate in the distal esophagus. Electronically Signed by Moody Price MD 01/29/2020 08:28 A
[2020-01-29] MEDS: PANTOPRAZOLE 40MG INJ (PROTONIX) (C9113) IV SCH (08:39)
[2020-01-29] MEDS: CHLORHEXIDINE GLUCONATE 0.12 % 15ML UDC (PERIDEX ORAL RINSE) MT SCH ×2 (08:39→20:58)
[2020-01-29 09:22] LABS: CK-MB VALUE MASS 3.7 NG/ML (<3.6); MB/CK RELATIVE INDEX 7.12 (< OR =4); TROPONIN I 0.2 NG/ML (< 0.10)
[2020-01-29] MEDS: propofoL 1,000 MG in IV 1 EA IV SCH ×3 (09:31→19:40)
[2020-01-29] MEDS: FUROSEMIDE 40 MG/4 ML VIAL (J1940) IV SCH ×2 (10:15→17:18)
[2020-01-29] MEDS: BICITRA 30ML SOLN UDC NG SCH ×2 (11:20→20:58)
[2020-01-29] MEDS ORDERED: GLUCOSE 4 GM CHEW TABLET PO PRN (13:30)
[2020-01-29] MEDS ORDERED: GLUCAGON FOR INJ 1 MG VIAL (J1610) SC PRN (13:30)
[2020-01-29] MEDS ORDERED: DEXTROSE 50% 50 ML SYRINGE IV PRN (13:30)
--- NOTE | 2020-01-29 14:00 | CCN ---
DATE OF SERVICE: 01/29/2020 The patient was seen and examined this morning during bedside rounds. Overnight, the patient has remained on Levophed for vasopressor support. However, he has been able to be titrated down to three mcg per minute and this morning was also off of Levophed briefly although his maps did trend down slightly. He has remained intubated and is sedated but is moving all four extremities during the sedation vacation earlier this morning. He was not following commands appropriately, however. The patient did have a Naranjo catheter placed at bedside by urology, and he has had some significant urine output overnight. He was started on a bicarbonate drip by nephrology, as well, yesterday evening. PHYSICAL EXAMINATION: Temperature 97.5, pulse 72, respirations 26, blood pressure 117/51, oxygen (O2) saturation 98% on 35% FIO2. Input 1.5 liters, out 810 mL. General: The patient is intubated and is sedated. He is responsive to painful stimuli and moving all four extremities spontaneously. HEENT: Normocephalic, atraumatic. Pupils are reactive to light bilaterally. Mucous membranes are moist. Neck is supple. Trachea is midline. There is no palpable cervical adenopathy. There is positive jugular venous distention (JVD). Cardiac is irregularly irregular. Normal S1, S2 with a faint murmur. Pulmonary: There are improved breath sounds on the left upper lobe with decreased breath sounds at the left base and some diminished breath sounds in the right base, as well. Abdomen is obese, soft, nontender, nondistended. There is no guarding noted. Extremities: There is no significant lower extremity edema bilaterally. LABORATORIES: WBC 7.3, hemoglobin of 10.3, platelets of 222. Chemistry: Sodium is 143, potassium is 4.1, chloride is 116, bicarbonate is 20, BUN is 91, creatinine is 2.49, glucose is 132, calcium 7.5. INR was 3.43. Troponin trending up to 0.18, BNP was elevated at 17,678. Arterial blood gas (ABG): pH of 7.354, pCO2 of 31.4, pO2 of 133.8. IMAGING: Chest x-ray shows pulmonary vascular congestion and a left lower lobe infiltrate/atelectasis. There is also likely left pleural effusion, as well as a small right pleural effusion. There is improvement in the aeration in the left upper lung collapse compared to previous x-ray. His endotracheal (ET) tube is in good position. He has a right IJ triple lumen in good position. His nasogastric (NG) tube is in position, as well, although the distal tip may be in the lower esophagus versus stomach. CT head: No evidence of focal infarct or hemorrhage. ASSESSMENT AND PLAN: Mr. Nieto is an 84-year-old male with a history of coronary artery disease (CAD), status post coronary artery bypass graft (CABG), congestive heart failure (CHF), history of biventricular automatic implantable cardioverter-defibrillator (AICD), atrial fibrillation on anticoagulation, history of aortic valve replacement, diabetes, hypertension, hyperlipidemia, chronic kidney disease (CKD), obstructive sleep apnea (NINA), who presented to an outside hospital with complaints of insomnia and generalized weakness. The patient also had a recent podiatry procedure on his right big toe last week and was started on indomethacin and colchicine for his gout, as well as Keflex for antibiotics. At the outside hospital, the patient was noted to have acute on chronic renal failure with a significant metabolic acidosis and additional respiratory acidosis. He was also noted to have supratherapeutic international normalized ratio (INR) on admission and was hyperkalemic. The patient was also hypotensive and required Levophed peripherally for blood pressure support. He was also intubated and started on mechanical ventilation prior to his transfer here to our intensive care unit (ICU). Neurologic: The patient is intubated and sedated. He did have a head CT done last night given his history of supratherapeutic INR and altered mental status. His head CT did not show any acute intracranial pathology, including infarct or hemorrhage. His altered mental status was likely secondary to metabolic encephalopathy from his uremia, as well as possible sepsis. - Will continue with daily sedation vacation and weaning trials as tolerated. Cardiovascular: The patient has an extensive cardiac history, including coronary artery disease, CHF, status post biventricular AICD, atrial fibrillation, and a bovine aortic valve replacement. He presented with shock, possibly secondary to sepsis from pneumonia versus infection with his recent podiatry procedure. The patient may also have a possible component of cardiogenic shock, given his significant cardiac history. He did have some positive troponin, which was likely secondary demand. - Continue with vasopressor support to maintain a mean arterial pressure (MAP) above 65. The patient had a right IJ triple lumen placed and was started on Levophed. He has been able to be titrated down overnight and has required significantly less doses of Levophed, only around three mcg per minute currently. - Will continue to trend his cardiac enzymes. His initial electrocardiogram (EKG) did not show any acute ST elevations, and so these are likely secondary demand ischemia. - The patient's echocardiogram did show a reduced ejection fraction (EF), approximately 40%, with evidence of some LV wall motion abnormality. He was also noted to have some mild mitral regurgitation, as well as evidence of severe increase in RV systolic pressure and a severely dilated inferior vena cava (IVC) suggestive of elevated central venous pressure. - The patient's chest x-ray this morning does show evidence of increased pulmonary vascular congestion, as well as likely bilateral pleural effusions. His central venous pressure (CVP) continues to be significantly elevated and will discuss with nephrology about starting Lasix potentially for diuresis. - The patient had supratherapeutic INR in the setting of Coumadin. He was given 1 unit of fresh frozen plasma (FFP) yesterday and had already received vitamin K 10 mg at the outside hospital. His INR has trended down to 3.43. Will continue to hold his Coumadin; and once his INR is less than 3, will start him on a heparin drip for anticoagulation. - Will continue to hold aspirin, given his history of uremia with concern for uremic platelets. Will likely restart his aspirin tomorrow. Pulmonary: The patient is intubated and on mechanical ventilation. His initial chest x-ray did show significant atelectasis and mucus plugging of the left lung. This morning, his chest x-ray shows improved aeration in the left upper lobe, but he does have atelectasis versus consolidation in the left lower lobe, as well as some evidence of pulmonary vascular congestion and pleural effusions bilaterally. - Will continue the patient on mechanical ventilation with volume control settings of 420 and will decrease his respiratory rate to 23 and continue with FIO2 reduced to 35 and a PEEP of 5. - Will continue with daily ABGs and chest x-rays while intubated. Continue with vent bundle care with head of bed elevation and chlorhexidine mouthwash. - Will continue the patient with antibiotics for possible pneumonia with ceftriaxone and azithromycin and will discontinue his vancomycin as his methicillin-resistant Staphylococcus aureus (MRSA) screen was negative. - Will followup results of his sputum and blood cultures, as well as the wound culture that he had done from his right great toe, as he did have some pus drainage from it. Renal: The patient with acute on chronic renal failure with non anion gap acidosis. The patient renal failure likely in the setting of some medications that he received as an outpatient with nonsteroidal antiinflammatory drugs (NSAIDs) and colchicine. He likely also has a component of postobstructive kidney injury due to the phimosis noted on his urologic examination. - Appreciate renal recommendations and consult. He was started on bicarbonate infusion yesterday evening, and his renal function has improved. He also had a Naranjo catheter placed and had significant drainage of urine upon placement by urology. - The patient does have evidence of pulmonary edema and fluid overload clinically, as well as on his echocardiogram and with his elevated CVP. He does have RV dilation and significant pulmonary hypertension, and so suspect with the diuresis he may actually have improvement in his cardiac output and potentially in his renal function. - Will continue with Lasix as per renal, as well as with Bicitra. - Will continue to monitor his renal function and acidosis, as well as electrolytes. - Appreciate urology consult and the placement of the Naranjo catheter. He will need to be discharged with the Naranjo catheter in place with followup with urology as an outpatient for possible elective circumcision. - Will continue with fingerstick glucose checks with sliding scale coverage as needed, given his history of diabetes. Gastrointestinal (GI): The patient has an orogastric (OG) tube in place, and he is kept nothing by mouth currently. Will start him on tube feeds and monitor for residuals. - Continue with GI prophylaxis. Deep venous thrombosis (DVT), heparin. Will start heparin drip once INR is less than 2. CODE STATUS: The patient is a DO NOT RESUSCITATE (DNR) with a trial intubation. TOTAL CRITICAL CARE TIME SPENT: Not including procedures, approximately 40 minutes. MTDD
[2020-01-29 15:11] LABS: CK-MB VALUE MASS 4.4 NG/ML (<3.6); TROPONIN I 0.15 NG/ML (< 0.10)
[2020-01-29] MEDS: AZITHROMYCIN INJ 500 MG, VIAL MATE ADAPTER 1 EACH in D5W 250 ML IV SCH (15:38)
[2020-01-29] MEDS: cefTRIAXone SOD 1 GM in D5W MINI-BAG PLUS 50 ML IV SCH (16:12)
[2020-01-29] MEDS: HumaLOG INSULIN (NovoLOG) PER UNIT SC SCH (17:43)
--- NOTE | 2020-01-29 17:46 | IPN ---
DATE: 01/29/2020 SUBJECTIVE: The patient was seen and examined at the bedside today morning in the intensive care unit (ICU). His was also present at the bedside. The patient continues to be intubated. He was not on any pressors in the morning when I saw him. Blood pressures were soft with systolic in low 90s. His urine output is improving. He is making more than 60 mL of urine an hour. Renal function is also showing improvement. creatinine is trending down. Hyperkalemia is improving. His chest x-ray done today morning is showing more aeration today as compared with yesterday when there was complete whiteout on the left side on x-ray and his acidosis is also getting better with the IV bicarbonate fluid that he is getting. However, the patient clinically is volume overloaded and his central venous pressure (CVP) done today morning was more than 16. OBJECTIVE: VITAL SIGNS: Temperature is 97.6 degrees Fahrenheit, blood pressure 110/58, pulse is 76, respiratory rate of 27, saturating 95% on the ventilator with 35% FIO2. INTAKE AND OUTPUT: Urine output recorded is 810 mL yesterday, 675 mL so far today since overnight. Weight in the bed scale is 105.8 kg. PHYSICAL EXAMINATION: GENERAL: The patient is intubated, sedated, laying in bed. Eyes are closed. Pupils are equally round and reactive to light. He has an endotracheal tube and orogastric tube. Neck is supple. She has a right internal jugular (IJ) triple-lumen catheter. CARDIOVASCULAR: S1, S2, regular rate, 1+ edema of the bilateral lower extremities. RESPIRATORY: Chest is clear to auscultation on the right side. There are decreased breath sounds on the left base. I can hear the breath sounds on the left apex. ABDOMEN: Soft, positive bowel sounds, nontender. No organomegaly. GENITOURINARY: He has an indwelling Naranjo catheter. Urine in the bag is clear. MUSCULOSKELETAL: No clubbing or cyanosis. Pulses are 2+. He has a dressing on the right big toe. CENTRAL NERVOUS SYSTEM (STONE PAVER): The patient is intubated and sedated. Otherwise, he moves extremities on painful stimuli. LABORATORY REVIEW: CBC showed a WBC of 7.3, hemoglobin 10.3, platelets are 222. INR today is 3.4. ABG done today morning showed pH of 7.35, pCO2 of 31, pO2 of 133, bicarbonate is 17, O2 sat is 99%. BMP done today morning showed sodium 143, potassium 4.1, chloride 116, bicarbonate 20, BUN 91, creatinine is 2.4, calcium is 7.5, troponin is 0.18. MICROBIOLOGY: Wound cultures, urine culture and blood cultures are all pending. IMAGING STUDIES: A chest x-ray done today morning showed improving aeration in the left lung, NG tube in the distal esophagus, cardiomegaly and vascular congestion. CURRENT INPATIENT MEDICATIONS: The patient's medications were all reviewed by me. The patient was getting sodium bicarbonate-containing IV fluid. I have stopped the IV fluid. He continues to be on Levophed protocol. However, in the morning when I saw him, it was weaned off. He continues to be on IV antibiotic. I have started the patient on Bicitra 30 mL via the nasogastric (NG) tube twice a day and I have also started him on Lasix 40 mg IV every eight hours. There is no other change in the medications today as compared with yesterday. ASSESSMENT AND PLAN: 1. Acute renal failure superimposed on chronic kidney disease. The patient is showing signs of renal improvement. He is nonoliguric at this time. Creatinine and potassium is trending down. No urgent need of dialysis. IV fluids are being stopped because of decompensated heart failure and he is off the pressors. I am going to start the patient on gentle diuresis now. 2. Acute decompensated systolic congestive heart failure. The patient's central venous pressure (CVP) is still high at 16. He is being weaned off the pressors. I have started him on Lasix 40 mg IV every eight hours. IV bicarbonate-containing fluids are being stopped. 3. Normal anion gap metabolic acidosis. It is secondary to acute renal failure. As mentioned above, bicarbonate-containing fluids are being stopped. The patient has been started on Bicitra 30 mL via the nasogastric (NG) tube twice a day. 4. Ventilator-dependent respiratory failure. The patient is getting better aeration of the left lung. Ventilator management is as per primary team. Volume status will be optimized with the diuretics. 5. Chronic gout secondary to chronic kidney disease. 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 The toe was cultured. No gout treatment at this time because the patient is in acute renal failure. He was taking colchicine and indomethacin as outpatient. 6. Hyperkalemia. Potassium level is improving with improvement in the renal function and metabolic acidosis. 7. Shock. The patient's blood pressures are getting better. Levophed is being weaned off. Cultures are pending. He continues to be on empiric broad-spectrum antibiotics. Total critical care time spent in the management of this patient today morning in the intensive care unit (ICU) is 45 minutes excluding all the procedures.
[2020-01-29] MEDS ORDERED: VANCOMYCIN HCL 1,000 MG, VIAL MATE ADAPTER 1 EACH in D5W 250 ML IV SCH (18:00)
[2020-01-29] MEDS ORDERED: VANCOMYCIN HCL 500 MG in D5W MINI-BAG PLUS 100 ML IV SCH (19:00)
[2020-01-30] VITALS (14 sets, daily range): BP systolic 83–142; BP diastolic 43–91; O2SAT 98
[2020-01-30] MEDS ORDERED: fentaNYL 100 MCG/2 ML INJECTION (J3010) IV PRN (00:15)
[2020-01-30] MEDS: HumaLOG INSULIN (NovoLOG) PER UNIT SC SCH ×3 (00:31→12:00)
[2020-01-30] MEDS: propofoL 1,000 MG in IV 1 EA IV SCH ×2 (00:32→07:48)
[2020-01-30 01:24] LABS: CALCIUM LEVEL 7.8 MG/DL (8.8-10.2); GLOMERULAR FILTRATION RATE 34.1 (>35); MAGNESIUM LEVEL 1.8 MG/DL (1.8-2.4); POTASSIUM SERUM 3.6 MEQ/L (3.5-5.1)
[2020-01-30] MEDS ORDERED: MAG SULF 1GM/100ML (MAG RUN) 1 GM in IV 1 EA IV ONE (01:30)
[2020-01-30] MEDS: FUROSEMIDE 40 MG/4 ML VIAL (J1940) IV SCH ×2 (01:40→10:36)
[2020-01-30] MEDS: KCL 20MEQ IN 100ML SWI (KRUN) 20 MEQ in IV 1 EA IV SCH ×4 (02:54→04:04)
[2020-01-30 05:37] LABS: ABG BASE EXCESS -3.7 (-2.0-2.0); ABG HCO3 20.4 MEQ/L (22.0-26.0); ABG O2 SATURATION 97.5 % (95.0-99.0); ABG PARTIAL PRESSURE O2 97.2 mmHg (75.0-100.0); ABG STANDARD HCO3 21.4 MEQ/L (22.0-26.0); ABG TOTAL CO2 21.5 MEQ/L (23.0-31.0); ABG pH (ARTERIAL) 7.397 UNITS (7.350-7.450)
[2020-01-30 05:38] LABS: BASO % 0.4 % (0.0-1.0); EOS # 0.4 10^3/uL (0.0-0.5); EOS % 4.2 % (0.0-3.0); HEMATOCRIT 33.5 % (42.0-52.0); LYMPH # 0.6 10^3/uL (1.5-5.0); LYMPH % 7.5 % (24.0-44.0); MEAN CORPUSCULAR HGB CONC 32.8 g/dl (32.0-36.5); MEAN CORPUSCULAR VOLUME 94.4 fl (80.0-96.0); MONO % 11.9 % (0.0-5.0); NEUTROPHILS # 6.3 10^3/uL (1.5-8.5); NEUTROPHILS % 75.3 % (36.0-66.0); PLATELET COUNT, AUTOMATED 256 10^3/uL (150-450); RED BLOOD COUNT 3.55 10^6/uL (4.30-6.10); WHITE BLOOD COUNT 8.4 10^3/uL (4.0-10.0)
[2020-01-30 05:49] LABS: INR 2.81; PROTHROMBIN TIME 29.4 SECONDS (11.8-14.0)
[2020-01-30 05:57] LABS: CALCIUM LEVEL 8.1 MG/DL (8.8-10.2); CREATININE FOR GFR 1.9 MG/DL (0.70-1.30); GLOMERULAR FILTRATION RATE 36.1 (>35); POTASSIUM SERUM 4.2 MEQ/L (3.5-5.1)
[2020-01-30] MEDS ORDERED: AMIODARONE HCL 150 MG in IV 1 EA IV STA (09:18)
--- NOTE | 2020-01-30 09:29 | REP ---
Portable chest x-ray: Single view. History: Intubated patient. Comparison study: January 29, 2020. Findings: The patient is rotated somewhat to the left. Endotracheal tube is seen in good position. A multi lead pacemaker is noted. A right IJ line is seen in place. NG tube enters left upper quadrant. Hazy opacity throughout the left base persists obscuring left hemidiaphragm and left lateral pleural angle consistent with pleural fluid and/or atelectasis versus infiltrate left base. There is some pleural fluid suspected on the right as well. Findings unchanged. Electronically Signed by Moody Price MD 01/30/2020 09:21 A
[2020-01-30] MEDS ORDERED: dexmedeTOMidine 200 MCG in IV 1 EA IV SCH (09:30)
[2020-01-30] MEDS: BICITRA 30ML SOLN UDC NG SCH (10:04)
[2020-01-30] MEDS: CHLORHEXIDINE GLUCONATE 0.12 % 15ML UDC (PERIDEX ORAL RINSE) MT SCH (10:04)
[2020-01-30] MEDS: PANTOPRAZOLE 40MG INJ (PROTONIX) (C9113) IV SCH (10:04)
[2020-01-30] MEDS: NOREPINEPHRINE BITARTRATE 8 MG in D5W 492 ML IV SCH (10:35)
[2020-01-30] MEDS ORDERED: METOPROLOL 5 MG/5 ML VIAL IV STA (11:55)
[2020-01-30] MEDS ORDERED: MORPHINE 2 MG/ML 1ML VIAL (J2270) IV PRN (13:00)
[2020-01-30] MEDS ORDERED: HYOSCYAMINE SULFATE 0.125 MG SUBL TABLET PO PRN (13:00)
--- NOTE | 2020-01-30 14:06 | CCN ---
DATE: 01/30/2020 CRITICAL CARE UPDATE NOTE FOR PATIENT MARIAA SHAH: The patient was placed on a weaning trial earlier this morning, which he tolerated well and was successfully extubated to bilevel positive airway pressure (BiPAP). The patient was on Precedex drip during the weaning trial as he was agitated with discontinue the propofol. The Precedex was discontinued once the patient was extubated and he was off of sedation. Off of sedation the patient continued to be agitated and confused and was not following commands appropriately. After some discussion with the patient's family, including his healthcare proxy, as well as his , the patient's family had stated that the patient would be a DO NOT INTUBATE and a DO NOT RESUSCITATE DNR at this point as he initially had not wanted any intubation and they had felt a short trial period of intubation was appropriate. After further discussion the patient's healthcare proxy and also discussed that the patient would not have wanted any of these aggressive measures. He has a previous history of lung nodules, which were being followed initially by Dr. Donovan, and he had also been seen by Dr. España. There was some concern that these nodules were increasing in size and he was recommended for biopsy for evaluation for malignancy, which he declined with the understanding that these may potentially be malignant lesions. As per his , the patient previously stated he had a very fulfilling life and she states that he would not have wanted any of these aggressive measures that he is currently undergoing in the intensive care unit (ICU). Therefore, the family with his healthcare proxy have decided to make the patient COMFORT MEASURES ONLY at this time and all interventions besides those needed for comfort will be discontinued. The patient has an updated Medical Orders for Life Sustaining Treatment (MOLST) in the chart signed by his healthcare proxy. MTDD
--- NOTE | 2020-01-30 14:26 | CCN ---
DATE: 01/30/2020 Patient was seen and examined this morning during bedside rounds. Overnight the patient has continued to require Levophed at a low-dose around 3-4 mcg per minute. He was given IV Lasix yesterday for diuresis and did have significant proven in his urine output and has been significantly net negative. The patient has been having issues overnight with tachycardia with atrial fibrillation in rapid ventricular response. He also has been having what appears to be runs of nonsustained ventricular tachycardia (NSVT) as well. The patient's electrolytes were repleted yesterday. PHYSICAL EXAM: Temperature 98.6, pulse 123, respirations 23, blood pressure 109/57, oxygen saturation 98% on the vent at 35% FiO2. Ins 1.8 liters, out 4.2 liters, net negative 2.4 liters. GENERAL: Patient is intubated and sedated. With sedation vacation he is moving all four extremities and is agitated, but is not following commands or tracking. HEENT: Normocephalic, atraumatic. Pupils reactive to light bilaterally. Mucous membranes are moist. NECK: Supple. Trachea is midline. There is no palpable cervical adenopathy. CARDIAC: Irregularly irregular tachycardic, normal S1-S2 with faint murmur. PULMONARY: There is improved breath sounds noted bilaterally with some diminished breath sounds at the bases. ABDOMEN: Obese, soft, nontender, nondistended. There is no guarding noted. EXTREMITIES: There is no significant lower extremity edema bilaterally. LABORATORY DATA WBC 8.4, hemoglobin 11.0, platelets 256. Chemistries: Sodium is 144, potassium 4.2, chloride 113, bicarb 25, BUN 71, creatinine 1.90, glucose 149, INR 2.81. ABG pH 7.397, pCO2 of 34.0, pO2 of 97.2. IMAGING: Chest x-ray shows the ET tube in good position. The right IJ triple lumen is in place. The NG tube is entering the left quadrant. There is some slight improvement in the opacity in the left base with evidence of left pleural effusion as well as a likely small right pleural effusion. ASSESSMENT/PLAN: Mr. 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 The patient had a recent podiatry procedure for gout and was started on indomethacin, colchicine as well as Keflex. He was found at the outside hospital to have acute on chronic renal failure with a significant metabolic acidosis with a respiratory acidosis as well as noted to have lethargy and altered mental status likely secondary to metabolic encephalopathy. The patient was also hypotensive as well and he was started on peripheral Levophed there and intubated and placed on mechanical ventilation prior to his transfer to our intensive care unit for further management. Neuro: The patient is intubated and sedated. He did have a head CT done on his admission here due to his supratherapeutic INR and altered mental status, which did not show any acute intracranial pathology. His altered mental status was likely secondary to metabolic encephalopathy from his uremia as well as with hypotension. - The patient is on propofol for sedation with Versed and fentanyl p.r.n. for pain control and for agitation. He had a sedation vacation today for a weaning trial on the ventilator. He did become agitated and so was started on Apresodex drip to help wean off the propofol for his weaning trial. Cardiovascular: The patient has an extensive cardiac history including CAD, CHF, status post biventricular AICD, atrial fibrillation and bovine aortic valve replacement. He presented with shock possibly secondary to sepsis from pneumonia versus infection from his recent podiatry procedure. The patient may have also had a component of cardiogenic shock given his significant cardiac history with some mild troponinemia secondary to demand ischemia. - The patient has a right IJ triple lumen in place and has been receiving vasopressor support with Levophed at a low dose to maintain his MAP above 65. - His repeat cardiac enzymes had trended down and his initial EKG did not show any acute ST elevations. - The patient does have evidence of pulmonary vascular congestion as well as bilateral pleural effusions with an increased infiltrate in the left base as well. His CVP was also significantly high and his echo did show evidence of severely dilated IVC and with elevated RV systolic pressure. - The patient was started on Lasix by nephrology for diuresis and he did have significant urine output noted with improvement in his x-ray this morning. - The patient also had supratherapeutic INR initially on admission was given 1 unit FFP and had previously received vitamin K 10 mg and another unit of FFP at an outside hospital. His INR has trended down, but he is still therapeutic and so heparin drip has not been started for anticoagulation. Pulmonary: Patient is intubated and on mechanical ventilation. His initial x-ray did show significant atelectasis and mucous plugging in the left lung. With positioning and suctioning his left upper lobe atelectasis improved but he does have evidence of consolidation in the left lower lobe as well as pulmonary vascular congestion and bilateral pleural effusion secondary to fluid overload. - The patient was given IV Lasix for diuresis with improvement in his chest x-ray. He has been able to wean down on his FiO2 on the vent and his settings currently on volume control are 420/23/35/5. - Patient will have a weaning trial today and will likely be extubated to BiPAP if tolerated. - The patient has daily ABGs and chest x-rays while intubated as well as vent bundle care with head of bed elevation and chlorhexidine mouthwash. - Patient is on antibiotics for pneumonia with ceftriaxone and azithromycin. His MRSA screen was negative and vancomycin was discontinued. - He has sputum and blood cultures pending. Renal: Patient with acute on chronic renal failure with non anion gap acidosis. The patient's renal failure was likely in the setting of medications that he received as an outpatient with NSAIDs and colchicine. He also likely had a component of postobstructive kidney injury due to the phimosis noted by urology that required placement by urology of a Naranjo catheter. - Appreciate renal consult and recommendations. He was initially placed on a bicarbonate drip and did have improvement in his renal function after the bicarbonate infusion and placement of Naranjo catheter. With diuresis his renal function has also continued to improve as with his dilated RV and pulmonary hypertension, suspect with diuretics he will actually have improvement in his LV function and cardiac output. - Will continue with Lasix but will decrease and continue to monitor his ins and outs as well as replete electrolytes as needed. - Appreciate urology consult and placement of Naranjo catheter. The patient will need to be discharged with Naranjo catheter in place with followup with urology as an outpatient. - - Continue with fingerstick glucose checks and sliding scale coverage. GI: Patient has an OG tube in place and was started on tube feeds which he been tolerating. - Continue GI prophylaxis. Deep vein thrombosis (DVT) prophylax with heparin. CODE STATUS: DO NOT RESUSCITATE/trial intubation. Total critical care time spent, not including any procedures, approximately 45 minutes. MTDD
[2020-01-30] MEDS: LORazepam 2 MG/ML VIAL (J2060) IV PRN ×2 (15:52→19:08)
[2020-01-30] MEDS: MORPHINE 2 MG/ML 1ML VIAL (J2270) IV PRN ×2 (17:05→18:41)
[2020-01-30] MEDS ORDERED: FUROSEMIDE 40 MG/4 ML VIAL (J1940) IV SCH (22:00)
--- NOTE | 2020-01-31 14:29 | IPN ---
DATE: 01/30/2020 SUBJECTIVE: The patient was seen and examined at the bedside today morning. At the bedside in the intensive care unit (ICU), he continues to be intubated. He was diuresed yesterday with intravenous (IV) Lasix. He made more than 4 liters of urine yesterday. Renal function is improving. Creatinine is down from 2 to 1.9. He is still requiring Levophed at 4 mcg, and he is sedated with propofol, requiring 35% FiO2 through the vent. The patient's , his son, and his son-in-law were also present at the bedside, and the patient's son-in-law told me that the patient's wishes were not to be on the life support for a long time, and if not able to wean off the patient from the ventilator today, they would like to make the patient comfort measures only. OBJECTIVE: Vital signs: Temperature is 97.8 degrees Fahrenheit, blood pressure 124/59, pulse is 102, respiratory of 21, saturating 99% on the ventilator with 35% FiO2. Intake and output: Urine output recorded yesterday is 4.2 liters. Urine output since overnight today is 2.2 liters. Weight in the bed scale is 102.1 kg. PHYSICAL EXAMINATION: GENERAL: The patient is intubated, sedated, lying in the bed. HEAD AND NECK: Pupils are equally round and reactive to light. He has an endotracheal tube with an orogastric tube. Neck is supple. Jugular venous distention (JVD) is mildly elevated. CARDIOVASCULAR: S1, S2, tachycardia. Irregular rate, and 1+ edema on the bilateral lower extremities. RESPIRATORY: Decreased breath sounds on the left base. Otherwise no active rales or rhonchi. The patient is intubated at this time. ABDOMEN: Soft. Positive bowel sounds. Nontender. No organomegaly. GENITOURINARY: He has an indwelling Naranjo catheter at this time. MUSCULOSKELETAL: No clubbing or cyanosis. He has a dressing on the right big toe. CENTRAL NERVOUS SYSTEM: The patient is intubated and sedated. He moves extremities on painful stimuli. LABORATORY REVIEW: CBC showed a WBC of 8.4, hemoglobin 11, platelets are 156. BMP showed sodium 144, potassium 4.2, chloride 113, bicarbonate 25, BUN 71, creatinine is 1.9, calcium 8.1. Microbiology: Cultures are negative so far. IMAGING: A chest x-ray done today morning showed hazy opacity toward the left base persists, obscuring the left hemidiaphragm and left lateral pleural angle, consistent with pleural fluid or atelectasis. CURRENT INPATIENT MEDICATIONS.: The patient's medications were all reviewed by myself. He was given a dose of amiodarone 150 mg IV today morning because of atrial fibrillation. He continues to be on IV antibiotics. He continues to be on Levophed infusion. Lasix dose was decreased by myself to 40 mg IV every 12 hours. No other change in the medications today as compared with yesterday. ASSESSMENT AND PLAN: 1. Acute kidney injury superimposed on chronic kidney disease. Patient's renal function is improving. He is tolerating the diuretics. He has a very good urine output. Continue current dose of diuretic, which has been decreased today to 40 mg IV twice a day. 2. Acute decompensated systolic congestive heart failure. The patient's volume status is improving. As mentioned above, he has made more than 4 liters of urine yesterday and more than 2 liters so far since overnight. Lasix dose has been decreased to 40 mg IV twice a day. 3. Normal anion gap metabolic acidosis. His acidosis is getting better with improvement in the renal function. He continues to be on Bicitra 30 mL via nasogastric tube twice a day. 4. Ventilator-dependent respiratory failure. The patient's son-in-law, who is the power of attorney lawyer, was present in the ICU, and he reported that they just wanted to do a trial of intubation to see if the patient's condition gets better. The patient himself never wished to be on life support for a long time, and they want to wait for today's if we are able to extubate the patient. Then they would continue the care. Otherwise, if intubation is not successful, then patient would be made comfort measures only. 5. Shock. The patient continues to be on Levophed at 4 mcg at this time. 6. Presence of mass in the left lung. The patient's and son-in-law reported that the patient was following up with pulmonary service as outpatient for a questionable mass in the left lung. At that time he had opted not to do any intervention. DISPOSITION: The patient overall has a poor prognosis given possibility of a mass in the lung. The patient's family members are leaning more toward comfort measures only. I conveyed the wishes and desires of the patient's family members to the pulmonary critical care team. If the patient is made comfort measures only, then nephrology service would sign off from the case. Total critical care time spent in the management of this patient today morning in the ICU was 45 minutes, excluding all the procedures.
--- NOTE | 2020-02-01 14:28 | ECGEPIP ---
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
== END 2020-01-30 21:35 | disposition expired | DRG 871 ==
LOC: M ICU 14:02 → M MSPAV 01-30 18:01
PROVIDERS: ADMIT Internal Medicine Pulmonary Disease; ATTEND Internal Medicine Pulmonary Disease
PROC: 30233K1 Transfusion of Nonautologous Frozen Plasma into Peripheral Vein, Percutaneous Approach (ICD-10-PCS; 2020-01-28)
PROC: 5A1945Z Respiratory Ventilation, 24-96 Consecutive Hours (ICD-10-PCS; principal; 2020-01-29)
DX: A41.9 Sepsis, unspecified organism (principal); J96.90 Respiratory failure, unspecified, unspecified whether with hypoxia or hypercapnia; R65.21 Severe sepsis with septic shock; G93.41 Metabolic encephalopathy; J18.9 Pneumonia, unspecified organism; N17.9 Acute kidney failure, unspecified; E87.2 Acidosis; I50.22 Chronic systolic (congestive) heart failure; I13.0 Hypertensive heart and chronic kidney disease with heart failure and stage 1 through stage 4 chronic kidney disease, or unspecified chronic kidney disease; R57.0 Cardiogenic shock; I25.2 Old myocardial infarction; Z95.1 Presence of aortocoronary bypass graft; E78.5 Hyperlipidemia, unspecified; Z95.0 Presence of cardiac pacemaker; E11.9 Type 2 diabetes mellitus without complications; Z79.01 Long term (current) use of anticoagulants; Z95.2 Presence of prosthetic heart valve; G47.33 Obstructive sleep apnea (adult) (pediatric); I48.91 Unspecified atrial fibrillation; I25.10 Atherosclerotic heart disease of native coronary artery without angina pectoris; K44.9 Diaphragmatic hernia without obstruction or gangrene; Z96.642 Presence of left artificial hip joint; Z96.652 Presence of left artificial knee joint; Z87.891 Personal history of nicotine dependence; Z79.899 Other long term (current) drug therapy; Z66 Do not resuscitate; N47.1 Phimosis; R33.9 Retention of urine, unspecified; N18.3 Chronic kidney disease, stage 3 (moderate); M10.30 Gout due to renal impairment, unspecified site; E87.5 Hyperkalemia; D63.1 Anemia in chronic kidney disease; Z51.5 Encounter for palliative care